=== PATIENT | male | born 1985 | race Caucasian/White ===

== ENCOUNTER 2016-10-08 15:10 | Emergency (ER) | payer OTHER ==
[~2016-10-08] VITALS: Ht 180.3 cm; Wt 99.8 kg
[~2016-10-08 15:10] MED LIST: GENTAK3 MG/ML OPH; KEFLEX500 MG PO; MELOXICAM7.5 MG PO; MOTRIN800 MG PO; NKHM; PEPCID40 MG PO; SEPTRA DS 800 M1 TAB PO; TRAMADOL HCL50 MG PO; VICODIN 500 MG-1 TAB PO; ZITHROMAX250 MG PO; ZOVIRAX800 MG PO
[2016-10-08] MEDS ORDERED: ALLERGY RELIEF10 M2 PO (15:15)
[2016-10-08 15:48] LABS: BASO # 0.1 10*3/uL (0.0-0.1); BASO % 0.6 % (0.0-1.0); EOS # 0.1 10*3/uL (0.0-0.4); EOS % 0.8 % (1.0-4.0); HEMATOCRIT 44.4 % (42.0-52.0); HEMOGLOBIN 15.2 g/dl (14.0-18.0); LYMPH # 3.3 10*3/uL (1.3-4.4); LYMPH % 26.8 % (27.0-41.0); MEAN CELL VOLUME 91.5 fl (80.0-94.0); MEAN CORPUSCULAR HGB 31.3 pg (27.0-31.0); MEAN CORPUSCULAR HGB CONC 34.2 g/dl (33.0-37.0); MEAN PLATELET VOLUME 9.8 fl (9.6-12.3); MONO # 0.6 10*3/uL (0.1-1.0); MONO % 4.5 % (3.0-9.0); NEUT # 8.1 10*3/uL (2.3-7.9); NEUT % 67.1 % (47.0-73.0); PLATELET COUNT AUTOMATED 308 10*3/uL (130-400); RED BLOOD COUNT 4.85 10*6/uL (4.50-5.90); RED CELL DISTRI WIDTH 12.7 % (0-14.5); WHITE BLOOD COUNT 12.1 10*3/uL (4.8-10.8)
[2016-10-08 16:03] LABS: ALBUMIN 3.9 gm/dl (3.1-4.5); ALKALINE PHOSPHATASE 118 U/L (45-117); BILIRUBIN, TOTAL 0.6 mg/dl (0.2-1.0); BUN 11 mg/dl (7-24); CARBON DIOXIDE 30 mmol/L (21-32); CHLORIDE 104 mmol/L (98-107); EST GLOM FILT AFRICAN AMERICAN > 60 ml/min; GLUCOSE 88 mg/dL (65-99); POTASSIUM 4.9 mmol/L (3.5-5.1); SGOT/AST 15 IU/L (3-35); SGPT/ALT 17 U/L (12-78); SODIUM 140 mmol/L (136-145); TOTAL PROTEIN 7.3 gm/dL (6.4-8.2)
== END 2016-10-08 17:01 | disposition home or self-care (01) ==
LOC: ED 15:10
PROVIDERS: Physician Assistant
DX: B34.9 Viral infection, unspecified (principal); F17.200 Nicotine dependence, unspecified, uncomplicated; Z79.899 Other long term (current) drug therapy; Z88.0 Allergy status to penicillin

== ENCOUNTER 2017-03-25 23:48 | Emergency (ER) | payer OTHER ==
[~2017-03-25] VITALS: Ht 182.8 cm; Wt 104.3 kg
[~2017-03-25 23:48] MED LIST changes: +ALLERGY RELIEF10 M2 PO
== END 2017-03-26 01:12 | disposition home or self-care (01) ==
LOC: ED 23:48
DX: S61.213A Laceration without foreign body of left middle finger without damage to nail, initial encounter (principal); F17.200 Nicotine dependence, unspecified, uncomplicated; Z79.899 Other long term (current) drug therapy; Z88.0 Allergy status to penicillin; Z88.1 Allergy status to other antibiotic agents; W27.8XXA Contact with other nonpowered hand tool, initial encounter; Y93.89 Activity, other specified; Y92.89 Other specified places as the place of occurrence of the external cause; Y99.9 Unspecified external cause status

== ENCOUNTER 2018-02-11 16:43 | Emergency (ER) | payer OTHER ==
[~2018-02-11] VITALS: Ht 182.8 cm; Wt 99.3 kg
== END 2018-02-11 17:14 | disposition home or self-care (01) ==
LOC: ED 16:43
DX: S61.210A Laceration without foreign body of right index finger without damage to nail, initial encounter (principal); F17.200 Nicotine dependence, unspecified, uncomplicated; Z88.0 Allergy status to penicillin; Z79.899 Other long term (current) drug therapy; W26.0XXA Contact with knife, initial encounter; Y93.89 Activity, other specified; Y92.89 Other specified places as the place of occurrence of the external cause; Y99.8 Other external cause status

== ENCOUNTER 2018-03-22 14:07 | Emergency (ER) | payer OTHER ==
[~2018-03-22] VITALS: Wt 104.3 kg
[2018-03-22] MEDS ORDERED: ZITHROMAX250 MG PO (15:58)
[2018-03-22] MEDS ORDERED: PROAIR HFA8.5 GM INH (15:58)
[2018-03-22] MEDS ORDERED: PREDNISONE20 M1 PO (15:58)
== END 2018-03-22 16:02 | disposition home or self-care (01) ==
LOC: ED 14:07
DX: J01.90 Acute sinusitis, unspecified (principal); F17.200 Nicotine dependence, unspecified, uncomplicated; Z88.0 Allergy status to penicillin; Z79.899 Other long term (current) drug therapy

== ENCOUNTER 2018-05-30 19:26 | Emergency (ER) | payer OTHER ==
[~2018-05-30] VITALS: Ht 177.8 cm; Wt 103.4 kg
[~2018-05-30 19:26] MED LIST changes: +PREDNISONE20 M1 PO; +PROAIR HFA8.5 GM INH
[2018-05-30] MEDS ORDERED: CEPHALEXIN500 M1 PO (21:24)
== END 2018-05-30 21:36 | disposition home or self-care (01) ==
LOC: ED 19:26
DX: L98.8 Other specified disorders of the skin and subcutaneous tissue (principal); Z88.0 Allergy status to penicillin; Z79.899 Other long term (current) drug therapy

== ENCOUNTER 2019-03-30 10:36 | Emergency (ER) | payer OTHER ==
[~2019-03-30] VITALS: Ht 180.3 cm; Wt 104.3 kg
[~2019-03-30 10:36] MED LIST changes: +CEPHALEXIN500 M1 PO
== END 2019-03-30 12:00 | disposition home or self-care (01) ==
LOC: ED 10:36
DX: S16.1XXA Strain of muscle, fascia and tendon at neck level, initial encounter (principal); F17.200 Nicotine dependence, unspecified, uncomplicated; Z79.899 Other long term (current) drug therapy; Z88.0 Allergy status to penicillin; V49.88XA Car occupant (driver) (passenger) injured in other specified transport accidents, initial encounter; Y93.89 Activity, other specified; Y92.413 State road as the place of occurrence of the external cause; Y99.9 Unspecified external cause status

== ENCOUNTER 2019-05-21 09:07 | Emergency (ER) | payer OTHER ==
[~2019-05-21] VITALS: Ht 180.3 cm; Wt 105.2 kg
[2019-05-21] MEDS ORDERED: TESSALON PERLE100 M1 PO (10:59)
[2019-05-21] MEDS ORDERED: FLONASE ALLERG9.9 ML NAS (10:59)
[2019-05-21] MEDS ORDERED: PROVENTIL HFA6.7 GM INH (11:02)
== END 2019-05-21 11:06 | disposition home or self-care (01) ==
LOC: ED 09:07
DX: J06.9 Acute upper respiratory infection, unspecified (principal); J45.909 Unspecified asthma, uncomplicated; F17.200 Nicotine dependence, unspecified, uncomplicated

== ENCOUNTER 2020-05-26 19:16 | Emergency (ER) | payer OTHER ==
[~2020-05-26] VITALS: Wt 104.3 kg
[~2020-05-26 19:16] MED LIST changes: +FLONASE ALLERG9.9 ML NAS; +PROVENTIL HFA6.7 GM INH; +TESSALON PERLE100 M1 PO
[2020-05-26] MEDS ORDERED: PENICILLIN VK500 MG PO (19:38)
== END 2020-05-26 19:40 | disposition home or self-care (01) ==
LOC: ED 19:16
DX: K02.9 Dental caries, unspecified (principal); K08.89 Other specified disorders of teeth and supporting structures; Z79.899 Other long term (current) drug therapy

== ENCOUNTER 2020-06-05 20:10 | Emergency (ER) | payer OTHER ==
[~2020-06-05 20:10] MED LIST changes: +PENICILLIN VK500 MG PO
[2020-06-05] MEDS ORDERED: CLEOCIN HCL300 MG PO (21:00)
== END 2020-06-05 21:15 | disposition home or self-care (01) ==
LOC: ED 20:10
DX: K05.319 Chronic periodontitis, localized, unspecified severity (principal)

== ENCOUNTER 2020-08-07 18:05 | Emergency (ER) | payer OTHER ==
[~2020-08-07] VITALS: Ht 180.3 cm; Wt 104.3 kg
[~2020-08-07 18:05] MED LIST changes: +CLEOCIN HCL300 MG PO
[2020-08-07] MEDS ORDERED: NAPROSYN500 MG PO ×2 (19:59)
== END 2020-08-07 20:03 | disposition home or self-care (01) ==
LOC: ED 18:05
DX: G56.21 Lesion of ulnar nerve, right upper limb (principal)

== ENCOUNTER 2020-09-05 11:52 | Emergency (ER) | payer OTHER ==
[~2020-09-05] VITALS: Ht 180.3 cm; Wt 108.9 kg
[~2020-09-05 11:52] MED LIST changes: +NAPROSYN500 MG PO
== END 2020-09-05 14:32 | disposition home or self-care (01) ==
LOC: ED 11:52
DX: S61.213A Laceration without foreign body of left middle finger without damage to nail, initial encounter (principal); R56.9 Unspecified convulsions; F32.9 Major depressive disorder, single episode, unspecified; J45.909 Unspecified asthma, uncomplicated; X58.XXXA Exposure to other specified factors, initial encounter; Y93.89 Activity, other specified; Y92.89 Other specified places as the place of occurrence of the external cause; Y99.8 Other external cause status

== ENCOUNTER → 2020-11-03 | Outpatient (CLI) | payer OTHER | END | disposition home or self-care (01) | LOC: ORTHO 02:52 | PROVIDERS: ATTEND Orthopaedic Surgery | DX: M25.722 Osteophyte, left elbow (principal) ==

== ENCOUNTER 2021-07-09 15:55 | Emergency (ER) | payer OTHER ==
[2021-07-09] MEDS ORDERED: NAPROSYN500 MG PO (20:23)
== END 2021-07-09 20:35 | disposition home or self-care (01) ==
LOC: ED 15:55
DX: S90.01XA Contusion of right ankle, initial encounter (principal); W22.8XXA Striking against or struck by other objects, initial encounter; Y93.89 Activity, other specified; Y92.89 Other specified places as the place of occurrence of the external cause; Y99.8 Other external cause status

== ENCOUNTER 2023-05-07 20:56 | Emergency (ER) | payer SELFPAY ==
[~2023-05-07] VITALS: Ht 180.3 cm; Wt 99.8 kg
[2023-05-07] MEDS ORDERED: HYDROCODONE-AC1 EAC1 PO (22:35)
== END 2023-05-07 22:48 | disposition home or self-care (01) ==
LOC: ED 20:56
DX: S92.324A Nondisplaced fracture of second metatarsal bone, right foot, initial encounter for closed fracture (principal); S92.334A Nondisplaced fracture of third metatarsal bone, right foot, initial encounter for closed fracture; S92.344A Nondisplaced fracture of fourth metatarsal bone, right foot, initial encounter for closed fracture; S92.354A Nondisplaced fracture of fifth metatarsal bone, right foot, initial encounter for closed fracture; M25.561 Pain in right knee; F32.A Depression, unspecified; J45.909 Unspecified asthma, uncomplicated; W17.89XA Other fall from one level to another, initial encounter; Y93.89 Activity, other specified; Y92.009 Unspecified place in unspecified non-institutional (private) residence as the place of occurrence of the external cause; Y99.8 Other external cause status

== ENCOUNTER 2024-01-25 14:34 | Emergency (ER) | payer OTHER ==
[~2024-01-25] VITALS: Ht 180.3 cm; Wt 104.3 kg
[~2024-01-25 14:34] MED LIST changes: +HYDROCODONE-AC1 EAC1 PO
[2024-01-27 05:06] LABS: HEPATITIS B SURFACE AB Reactive (.)
== END 2024-01-25 16:07 | disposition home or self-care (01) ==
LOC: ED 14:34
PROVIDERS: Physician Assistant Medical
DX: S69.81XA Other specified injuries of right wrist, hand and finger(s), initial encounter (principal); F32.A Depression, unspecified; J45.909 Unspecified asthma, uncomplicated; W46.0XXA Contact with hypodermic needle, initial encounter; Y93.89 Activity, other specified; Y92.89 Other specified places as the place of occurrence of the external cause; Y99.0 Civilian activity done for income or pay

== ENCOUNTER → 2024-02-25 | Outpatient (CLI) | payer OTHER ==
[2024-02-26 05:07] LABS: HBSAG Negative (Negative); HEP B CORE AB, IGM Negative (Negative); HEPATITIS C ANTIBODY Non Reactive (Non Reactive)
== END | disposition home or self-care (01) ==
LOC: LAB 09:28
PROVIDERS: ATTEND Family Medicine
DX: R79.89 Other specified abnormal findings of blood chemistry (principal)

== ENCOUNTER 2024-04-21 14:25 | Emergency (ER) | payer SELFPAY ==
[~2024-04-21] VITALS: Ht 180.3 cm; Wt 99.8 kg
[2024-04-21] MEDS ORDERED: Tdap Vaccine 0.5 ML SYR (Adult Vaccine) IM ONE (14:45)
[2024-04-21] MEDS ORDERED: ceFAZolin sodium 1 GM VIAL IM ONE (15:05)
[2024-04-21] MEDS ORDERED: Water, Sterile 10 ML VIAL ONE (15:27)
[2024-04-21] MEDS ORDERED: CEPHALEXIN500 M1 PO (16:00)
[2024-04-21] MEDS ORDERED: Gelatin Sponge 1 EACH SPON T ONE ×2 (16:05→16:20)
== END 2024-04-21 16:29 | disposition home or self-care (01) ==
LOC: ED 14:25
DX: S61.111A Laceration without foreign body of right thumb with damage to nail, initial encounter (principal); F32.A Depression, unspecified; J45.909 Unspecified asthma, uncomplicated; F17.200 Nicotine dependence, unspecified, uncomplicated; W27.0XXA Contact with workbench tool, initial encounter; Y93.89 Activity, other specified; Y92.009 Unspecified place in unspecified non-institutional (private) residence as the place of occurrence of the external cause; Y99.8 Other external cause status

== ENCOUNTER 2024-04-21 19:27 | Emergency (ER) | payer SELFPAY ==
[~2024-04-21] VITALS: Wt 102.1 kg
[2024-04-21] MEDS ORDERED: SILVER NITRATE APPLICATOR 1 EACH APP T ONE (20:30)
[2024-04-21] MEDS ORDERED: Gelatin Sponge 1 EACH SPON T ONE (21:20)
== END 2024-04-21 21:26 | disposition home or self-care (01) ==
LOC: ED 19:27
DX: S61.011D Laceration without foreign body of right thumb without damage to nail, subsequent encounter (principal); W27.0XXD Contact with workbench tool, subsequent encounter

== ENCOUNTER → 2024-04-26 | Outpatient (CLI) | payer OTHER ==
[2024-04-27 07:07] LABS: HBSAG Negative (Negative); HEP B CORE AB, IGM Negative (Negative); HEPATITIS C ANTIBODY Non Reactive (Non Reactive)
== END | disposition home or self-care (01) ==
LOC: LAB 13:54
PROVIDERS: ATTEND Family Medicine
DX: R79.89 Other specified abnormal findings of blood chemistry (principal)

== ENCOUNTER 2024-09-19 11:26 | Emergency (ER) | payer SELFPAY ==
[~2024-09-19] VITALS: Ht 180.3 cm; Wt 99.8 kg
[2024-09-19] MEDS ORDERED: Acetaminophen/Oxycodone 5 MG/325 MG TABLET PO ONE (11:40)
[2024-09-19] MEDS ORDERED: PERCOCET 5-3251 EACH PO (11:53)
== END 2024-09-19 17:33 | disposition home or self-care (01) ==
LOC: ED 11:26
DX: S62.316A Displaced fracture of base of fifth metacarpal bone, right hand, initial encounter for closed fracture (principal); F32.A Depression, unspecified; J45.909 Unspecified asthma, uncomplicated; F17.200 Nicotine dependence, unspecified, uncomplicated; W22.03XA Walked into furniture, initial encounter; Y93.89 Activity, other specified; Y92.89 Other specified places as the place of occurrence of the external cause; Y99.8 Other external cause status

== ENCOUNTER → 2025-02-04 | Outpatient (CLI) | payer OTHER ==
[~2025-02-04] MED LIST changes: +PERCOCET 5-3251 EACH PO
== END | disposition home or self-care (01) ==
LOC: LAB 13:03
PROVIDERS: ATTEND Family Medicine
DX: R79.89 Other specified abnormal findings of blood chemistry (principal); R53.83 Other fatigue